=== PATIENT | female | born 1985 | race Caucasian/White ===

== ENCOUNTER 2022-11-07 15:23 | Outpatient (CLI) | payer OTHER, SELFPAY | END 2022-11-07 15:24 | disposition home or self-care (01) | PROVIDERS: PCP Family Medicine; Visit Provider Family Medicine | DX: Z00.00 Encounter for general adult medical examination without abnormal findings (principal); Z13.6 Encounter for screening for cardiovascular disorders | CPT/HCPCS: 80053; 80061 ==

== ENCOUNTER 2024-07-22 10:45 | Outpatient (CLI) | payer OTHER, SELFPAY ==
[2024-07-24 05:25] LABS: HPV Source Endocervical; HPV, High Risk by TMA Not Detected
[2024-08-09 15:11] LABS: Pap Test Reviewed by Path Done
== END 2024-07-22 10:46 | disposition home or self-care (01) ==
PROVIDERS: PCP Family Medicine; Visit Provider Family Medicine
DX: N88.8 Other specified noninflammatory disorders of cervix uteri (principal); Z11.51 Encounter for screening for human papillomavirus (HPV); Z12.4 Encounter for screening for malignant neoplasm of cervix
CPT/HCPCS: 87624; 87625; 88141; 88142